=== PATIENT | male | born 1965 | race Caucasian/White ===

== ENCOUNTER 2025-02-11 10:05 | Outpatient (AMB) | payer OTHER, SELFPAY ==
--- NOTE | 2025-02-11 10:43 | A.PHYSOV ---
Vital Signs 02/11/25 10:49 Height 5 ft 5 in Weight 150 lb BMI 25.0 Intake Visit Reasons: NPV Jewell Ref-chronic right shoulder pain/neck Intake Note: Patient is a 59 year old male here for back and shoulder pain. 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 He does not recall a specific injury that caused the pain. The pain is worse as the day goes on, starting low in the morning and increasing to an 8/10 by the end of his workday, during which he performs constant heavy lifting. He has tried meloxicam without relief, and currently uses Tylenol, aspirin, and topical Biofreeze for some relief. He also finds that a heating pad helps ease the pain at home. He reports that this is his first visit for this issue and he has not previously engaged in physical therapy or manager long term care. A recent neck X-ray revealed severe narrowing of the C5-6 disc space. I reviewed the referring provider's no prior to consultation. Pain Description - Onset: Gradual, with no specific injury recalled. - Location: Right upper shoulder. - Radiation: Pain runs down through the right bicep. - Quality: Described as a steady pain. - Severity: Currently 3-4/10, but increases to an 8/10 by the end of the day. - Timing: Improves with rest overnight; progressively worsens throughout the day. - Exacerbating Factors: Worsens with work, which involves lifting items up to 30-50 pounds, and with computer use. Neck movements such as looking back or rotating also reproduce the pain. - Relieving Factors: Leaning to the left, taking Tylenol or aspirin, applying topical Biofreeze, and using a heating pad. Results - Imaging: X-ray of the neck shows severe narrowing of the C5-C6 disc space. [facility] Social History Alcohol intake: current Alcohol intake frequency: holidays/special occasions only Patient Tobacco Use Status: Never used Tobacco Review of Systems Narrative Review of Systems - Musculoskeletal: Reports steady pain in the upper right shoulder. - Neurological: Reports pain radiating down his right bicep. Denies numbness or tingling. Physical Exam Exam Exam: Physical Exam - Neck: No tenderness to palpation of the cervical spine. Tenderness noted in the upper trapezius region. Cervical extension, rotation, and right lateral bending reproduce radicular pain. Positive Spurling's test on the right. - Shoulder: No tenderness on palpation of the shoulder joint. Mild pain with active forward elevation. No pain on passive arm elevation. 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 Sensation to light touch is intact and symmetric throughout. Deep tendon reflexes were tested. Vital Signs: BMI result Body Mass Index 25.0 Assessment & Plan Assessment & Plan (1) Cervical radiculopathy: Code(s): M54.12 - Radiculopathy, cervical region Category: Medical (2) Cervical spondylosis: Code(s): M47.812 - Spondylosis without myelopathy or radiculopathy, cervical region Category: Medical Plan Pain Management - Affect: The pain significantly impacts his work, stating by the end of the day he is dragging my arm up. - Analgesia: He has tried meloxicam without success and stopped taking it. He uses Tylenol Arthritis, aspirin, and topical Biofreeze for symptomatic relief. Current pain is 3-4/10, reaching 8/10 by day's end. - Adverse Effects: No adverse effects from current medications reported. 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 - Aberrant Drug Related Behaviors: None noted. Plan Patient was informed and verbally consented to the use of an ambient scribe for clinic note documentation during this visit. 1. Cervical Radiculopathy The patient's clinical presentation, including radiating arm pain exacerbated by neck movements, a positive Spurling's test, and X-ray evidence of severe degenerative changes at C5-C6, is consistent with cervical radiculopathy. The plan is to initiate conservative management prior to pursuing advanced imaging, as an MRI would likely be denied by his insurance without a trial of such therapy. He will be started on gabapentin 100 mg three times daily for neuropathic pain, with counseling on potential somnolence and the option to titrate the dose up to 300 mg per dose as tolerated for efficacy. A referral will be placed for physical therapy to address the structural component of his pain. He was instructed to return for follow-up if physical therapy worsens his symptoms, as this could be used to justify the need for an MRI to his insurance company. Discussion Notes I explained to the patient that based on my examination, his symptoms of right arm and shoulder pain are likely originating from a pinched nerve in his neck, a condition known as cervical radiculopathy, rather than a primary shoulder problem. I reviewed his neck X-ray results which show severe narrowing at the C5-6 level, correlating with the nerve that innervates the shoulder, and explained how neck movements can compress this nerve and cause his radiating pain. We discussed the treatment pathway, noting that an MRI of his neck is the definitive diagnostic test, but that most insurance carriers require a trial of 4-6 weeks of conservative treatment before authorizing it. We considered options including physical therapy (PT), a home exercise plan, and manager long term care. I recommended PT as the most appropriate initial step, and the patient agreed, expressing his own reservations about chiropractic manipulation for a neck issue. I prescribed gabapentin for his nerve pain, explaining that it is more effective for this type of pain and is safer for his kidneys than NSAIDs like meloxicam or ibuprofen. I counseled him on the starting dose of 100 mg three times daily, the potential for drowsiness, and how to titrate the dose upwards for better pain control. I provided a referral for PT and advised him that if the therapy significantly worsens his pain, he should return so I can advocate for an MRI with his insurance. I explained that failure of conservative care may lead to more invasive treatments like injections in the future. Patient Instructions - You will be prescribed Gabapentin for your nerve pain. Start by taking one 100 mg pill three times per day. - This medication can make you sleepy. Take your first daytime dose on a day when you are at home and do not need to drive or operate machinery. - If your pain is not well controlled and you are not too sleepy, you can increase the dose to two or three pills (200 or 300 mg) up to three times per day. - You can continue to use [id number] anti-inflammatory medicines like Tylenol or ibuprofen as needed for pain. - A referral has been ordered for physical therapy (PT). Please schedule an appointment. This is the best first step to help your neck and arm pain. - If you find that physical therapy makes your pain much worse, please call our office to schedule a follow-up appointment. - Continue using a heating pad at home as needed for comfort. - Call the office or seek urgent medical attention if your pain dramatically worsens, or if you develop new significant weakness or loss of feeling in your arm or hand. Orders: Orders PT Evaluation and Treatment 02/11/25 M54.12 - Radiculopathy, cervical region Medications: New gabapentin 100 mg PO TID 90 caps 0RF 30 days M47.812 - Spondylosis without myelopathy or radiculopathy, cervical region, M54.12 - Radiculopathy, cervical region gabapentin 100 mg PO TID 90 caps 0RF M54.12 - Radiculopathy, cervical region Coding Level of Care Code Tele New Pt Level 4 (82444) Diagnoses Cervical radiculopathy M54.12 Cervical spondylosis M47.812
[2025-02-11 10:49] VITALS: BMI 25.0
--- OUTSIDE RECORDS SUMMARY | 2025-02-11 12:25 | XMS_ITS | Clinical Summary ---
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 30 tablet 5 Active atorvastatin (LIPITOR) 40 mg tablet TAKE ONE TABLET BY MOUTH EVERY DAY (PLEASE CALL THE OFFICE TO SCHEDULE AN APPOINTMENT FOR ) 90 tablet 1 5 Active omeprazole (PriLOSEC) [address] capsule TAKE ONE CAPSULE BY MOUTH EVERY DAY (PLEASE CALL THE OFFICE TO SCHEDULE AN APPOINTMENT FOR ) 90 capsule 1 5 Active Active Problems Problem Noted Date Diagnosed Date Gastroesophageal reflux disease without esophagi tis 05/14/2024 Overweight (BMI 25.0-29.9) 08/21/2018 Hyperlipidemia 09/21/2011 Encounters Date Type Department Care Team Description 11/19/2024 9:09 AM EDT - 11/19/2024 11:59 PM EDT [facility] [address] [place], [place] [address] [id number] Chronic right shoulder pain; Numbness Discharge Disposition: Home or Self Care 11/19/2024 8:30 AM EDT [facility] [address] [place] [address] Yaakov Steele, [place] Hyperlipidemia, unspecified hyperlipidemia type (Primary Dx); Gastroesophageal reflux disease without esophagitis; Chronic right shoulder pain; Numbness from Last 3 Months Immunizations Immunization Administration Dates Next Due Influenza Quadravalent, MDCK , 0.5ml, preservative free (Flucelvax) 6mo and older 10/29/2019,02/26/2019,01/09/2018 Influenza Quadravalent, MDCK , 0.5ml, with preservative (Flucelvax) 6mo and older 01/05/2017 Moderna SARS-CoV-2 COVID-19, mRNA, LNP-S, preservative free 11/27/2021,01/06/2021,07/01/2020,2020 Td Tetanus diptheria (Tdvax) 7yo and older 07/06/2021 Tdap Tetanus diptheria acell ular pertussis (Boostrix; Adacel) 7yo and older 08/25/2009 Surgical History Surgery Date Site/Laterality Comments OTHER SURGICAL HISTORY PROCEDURE: DENIES PREVIOUS SURGERY Medical History Medical History Date Comments Hyperlipidemia 09/21/2011 DX:Hyperlipidemi a Family History Medical History Relation Name Comments Coronary artery disease Father Heart attack Father Prostate cancer Father No Known Problems Maternal Grandfather No Known Problems Maternal Grandmother Coronary artery disease Mother Other: four stents at 81 Mother No Known Problems Paternal Grandfather No Known Problems Paternal Grandmother No Known Problems Sister 1 No Known Problems Sister 2 Relation Name Status Comments Father Maternal Grandfather Maternal Grandmother Mother Paternal Grandfather Paternal Grandmother Sister 1 Alive Sister 2 Alive Social History Tobacco Use Types Packs/Day Years Used Date Smoking Tobacco: Never Smokeless Tobacco: Never Tobacco Cessation:Counseling Given: Not Answered Alcohol Use Standard Drinks/Week Comments Yes 0 (1 standard drink = 0.6 oz pur e alcohol) Sex and Gender Information Value Date Recorded Sex Assigned at Not on file Legal Sex Male 8:35 AM EST Gender Identity Not on file Sexual Orientation Not on file Last Filed Vital Signs Vital Sign Reading Time Taken Comments Blood Pressure 132/66 11/19/2024 8:29 AM EDT Pulse 65 11/19/2024 8:29 AM EDT Temperature - - Respiratory Rate - - Oxygen Saturation - - Inhaled Oxygen Concentration - - Weight 72.1 kg (159 lb) 11/19/2024 8:29 AM EDT Height 165.1 cm (5' 5 ) 11/19/2024 8:29 AM EDT Body Mass Index 26.46 11/19/2024 8:29 AM EDT Plan of Treatment Health Maintenance Due Date Last Done Comments Colorectal Cancer Screening: Colonoscopy 1965 Pneumococcal Vaccine: 50+ Years (1 of 1 - PCV) 2013 Zoster Vaccines (1 of 2) 2013 HIV Screening 02/05/2022 Social Influencers of Health Screening 02/05/2022 COVID-19 Vaccine ( season) 2024 11/27/2021, 01/06/2021, 07/01/2020, Additional history exists Influenza Vaccine (#1) 2024 , 02/26/2019, 01/09/2018, Additional history exists Cholesterol Screening (Lipid Panel) 11/19/2029 11/19/2024, 05/14/2024, 10/03/2023, Additional history exists DTaP,Tdap,and Td Vaccines (3 - Td or Tdap) 07/07/2031 07/06/2021, 08/25/2009 RSV Immunization Adult Patients (1 - 1-dose 75+ series) 2038 Hepatitis C Screening Completed 08/05/2014 Depression Screening Completed 05/13/2024 HIB Vaccines Aged Out No longer eligi ble based on patient's age to complete this topic HPV Vaccines Aged Out No longer eligi ble based on patient's age to complete this topic Hepatitis A Vaccines Aged Out No long er eligible based on patient's age to complete this topic Hepatitis B Vaccines Aged Out No long er eligible based on patient's age to complete this topic IPV Vaccines Aged Out No longer eligi ble based on patient's age to complete this topic MMR Vaccines Aged Out No longer eligi ble based on patient's age to complete this topic Meningococcal ACWY Vaccine Aged Out N o longer eligible based on patient's age to complete this topic Meningococcal B Vaccine Aged Out No l onger eligible based on patient's age to complete this topic RSV Immunization Patients Under 20 months Aged Out No longer eligible based on patient's age to complete this topic Varicella Vaccines Aged Out No longer eligible based on patient's age to complete this topic Procedures Procedure Name Priority Date/Time Associated Diagnosis Comments LIPID PANEL WITH REFLEX TO DIRECT LDL Routine 11/19/2024 9:23 AM EDT Hyperlipidemia, unspecified hyperlipidemia type COMPREHENSIVE METABOLIC PANEL Routine 11/19/2024 9:23 AM EDT Hyperlipidemia, unspecified hyperlipidemia type XR CERVICAL SPINE 4-5 VIEWS Routine 11/19/2024 9:22 AM EDT Chronic right shoulder pain Numbness HEPATITIS C SCREENING Routine 08/05/2014 from Last 3 Months or Most Recently Relevant to Health Maintenance Results * (ABNORMAL) Lipid panel with reflex to direct LDL (11/19/2024 9:23 AM EDT) Cholesterol 218(H) 0 - 200 mg/dL LAB CHEMISTRY METHOD 11/19/2024 12:20 PM [facility] Triglycerides 168(H) 0 - 150 mg/dL LAB CHEMISTRY METHOD 11/19/2024 12:20 PM [facility] HDL 56 >=40 mg/dL LAB CHEMISTRY METHOD 11/19/2024 12:20 PM [facility] LDL Calculated 128(H) 0 - 100 mg/dL LAB CHEMISTRY METHOD 11/19/2024 12:20 PM [facility] Comment:Estimated LDL Calcul ated using equation: Total cholesterol - HDL cholesterol - (Triglycerides/5) VLDL Cholesterol Kun 33.6 mg/dL LAB CHEMISTRY METHOD 11/19/2024 12:20 PM [facility] Non HDL Chol. (LDL+VLDL) 162(H) <145 mg/dL LAB CHEMISTRY METHOD 11/19/2024 12:20 PM [facility] Chol/HDL Ratio 3.9 0.0 - 4.4 LAB CHEMISTRY METHOD 11/19/2024 12:20 PM [facility] Blood Venous blood specimen / Unknown Venipuncture / Unknown 11/19/2024 9:23 AM EDT 11/19/2024 9:23 AM EDT Yaakov Steele OIL WELL CABLE TOOL DRILLER LAB BLOOD ORDERABLES Final Res ult [facility] [address] [place] [address], * (ABNORMAL) Comprehensive metabolic panel (11/19/2024 9:23 AM EDT) Sodium 137 133 - 145 mmol/L LAB CHEMISTRY METHOD 11/19/2024 12:39 PM [facility] Potassium 4.4 3.5 - 5.5 mmol/L LAB CHEMISTRY METHOD 11/19/2024 12:39 PM [facility] Chloride 103 96 - 110 mmol/L LAB CHEMISTRY METHOD 11/19/2024 12:39 PM [facility] CO2 26 21 - 32 mmol/L LAB CHEMISTRY METHOD 11/19/2024 12:39 PM [facility] Anion Gap 8 3 - 11 LAB CHEMISTRY METHOD 11/19/2024 12:39 PM [facility] Glucose 107(H) 70 - 100 mg/dL LAB CHEMISTRY METHOD 11/19/2024 12:39 PM [facility] BUN 17 5 - 25 mg/dL LAB CHEMISTRY METHOD 11/19/2024 12:39 PM [facility] Creatinine 0.92 0.70 - 1.30 mg/dL LAB CHEMISTRY METHOD 11/19/2024 12:39 PM [facility] eGFR 95 >=60 mL/min/1. 73m2 LAB CHEMISTRY METHOD 11/19/2024 12:39 PM [facility] Comment:Calculation based on the Chronic Kidney Disease Epidemiology Collaboration (CKD-EPI) equation refit without adjustment for race. BUN/Creatinine Ratio 18.5 LAB CHEMISTRY METHOD 11/19/2024 12:39 PM EDT [facility] Calcium 9.1 8.5 - 10.5 mg/dL LAB CHEMISTRY METHOD 11/19/2024 12:39 PM [facility] AST (SGOT) 17 10 - 42 unit/L LAB CHEMISTRY METHOD 11/19/2024 12:39 PM T [facility] ALT (SGPT) 30 10 - 60 unit/L LAB CHEMISTRY METHOD 11/19/2024 12:39 PM T [facility] Alkaline Phosphatase 63 42 - 121 unit/L LAB CHEMISTRY METHOD 11/19/2024 12:39 PM [facility] Total Protein 7.0 6.0 - 8.0 g/dL LAB CHEMISTRY METHOD 11/19/2024 12:39 PM [facility] Albumin 4.0 3.2 - 5.0 g/dL LAB CHEMISTRY METHOD 11/19/2024 12:39 PM [facility] Total Bilirubin 0.6 0.0 - 1.4 mg/dL LAB CHEMISTRY METHOD 11/19/2024 12:39 PM [facility] Blood Venous blood specimen / Unknown Venipuncture / Unknown 11/19/2024 9:23 AM EDT 11/19/2024 9:23 AM EDT us Yaakov Steele OIL WELL CABLE TOOL DRILLER LAB BLOOD ORDERABLES Final Res ult [facility] [address] [place] [address], * XR Cervical Spine 4-5 Views (11/19/2024 9:22 AM EDT) Anatomical Region Laterality Modality Spine, C-spine Radiographic Taina ging 11/19/2024 9:26 AM EDT Narrative 11/19/2024 9:27 AM EDT Cervical spine, 4 views. History numbness. There is mild retrolisthesis of C5 over C6 and severe narrowing of the disc space at C5-6 level. There are degenerative changes in the uncovertebral joints at multiple levels with severe narrowing of the C6 neural foramina bilaterally. There is mild narrowing of the right C4 and C7 neural foramina. CONCLUSIONS: Degenerative changes as detailed. -------- FINAL REPORT -------- Dictated By: Davina Yap Dictated Date: 11/19/2024 09:26 ET Assigned Physician: Davina Yap Reviewed and Electronically Signed By: Davina Yap Signed Date: 11/19/2024 09:27 ET Workstation ID: [id number] Transcribed By: Self Edit Transcribed Date: 11/19/2024 09:26 ET Procedure Note Davina Yap MD - 11/19/2024 Cervical spine, 4 views. History numbness. There is mild retrolisthesis of C5 over C6 and severe narrowing of thedisc space at C5-6 level. There are degenerative changes in theuncovertebral joints at multiple levels with severe narrowing of the E0bhxwns foramina bilaterally. There is mild narrowing of the right C4 andC7 neural foramina. CONCLUSIONS: Degenerative changes as detailed. -------- FINAL REPORT -------- Dictated By: Davina Yap Dictated Date: 11/19/2024 09:26 ET Assigned Physician: Davina Yap Reviewed and Electronically Signed By: Davina Yap Signed Date: 11/19/2024 09:27 ET Workstation ID: [id number] Transcribed By: Self Edit Transcribed Date: 11/19/2024 09:26 ET Yaakov Steele NP IMG XR PROCEDURES Final Result * Hepatitis C Screening (08/05/2014) Hepatitis C Screening ABSTRACTED Historical Provider HEALTH MAINTENANCE Final Result from Last 3 Months or Most Recently Relevant to Health Maintenance Insurance [facility] Care Teams 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
== END 2025-02-11 12:56 | disposition home or self-care (01) ==
LOC: HO.HPHYS 10:05
PROVIDERS: PCP Internal Medicine; Visit Provider Physician Assistant
DX: M54.12 Radiculopathy, cervical region (principal); M47.812 Spondylosis without myelopathy or radiculopathy, cervical region
CPT/HCPCS: 99204